=== PATIENT | male | born 1955 | race Two or more races ===

== ENCOUNTER 2024-12-15 07:32 | Day surgery (SDC) | payer MEDICARE, MEDICAID, SELFPAY ==
--- NOTE | 2024-12-12 08:37 | EKG_ITS ---
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
[2024-12-12 11:15] LABS: Basophils # (Auto) 0.0 Thou/mm3 (0.0-0.2); Basophils % (Auto) 1 % (0-2.5); Eosinophils # (Auto) 0.1 Thou/mm3 (0.0-0.5); Eosinophils % (Auto) 1 % (0-10); Hematocrit 38.9 % (41.0-53.0); Hemoglobin 14.1 g/dL (13.5-16.0); Immature Granulocytes Auto 0.01 Thou/mm3 (0.00-0.00); Lymphocytes # (Auto) 1.9 Thou/mm3 (1.0-4.8); Lymphocytes % (Auto) 39 % (10-50); Mean Corpuscular HGB Conc 36.2 g/dl (31.0-37.0); Mean Corpuscular Hemoglobin 29.9 pg (25.0-35.0); Mean Corpuscular Volume 83 fL (80-100); Monocytes # (Auto) 0.9 Thou/mm3 (0.0-0.8); Monocytes % (Auto) 19 % (0-12); Neutrophils # (Auto) 1.9 Thou/mm3 (1.8-7.7); Neutrophils % (Auto) 40 % (37-80); Nucleated Red Blood Cell # 0.00 Thou/mm3 (0.00-0.00); Nucleated Red Blood Cell % 0 /100 WBC (0); Platelet Count 254 Thou/mm3 (140-440); RDW Standard Deviation 37.4 fL (35.1-43.9); Red Blood Count 4.71 Miln/mm3 (4.50-5.90); White Blood Count 4.7 Thou/mm3 (3.8-10.6)
[2024-12-12 11:21] LABS: INR 1.1 (0.9-1.3); Partial Thromboplastin Time 28.6 Seconds (22.0-36.0); Prothrombin Time 11.6 Seconds (9.0-12.2)
[2024-12-12 11:22] LABS: Anion Gap 12 (7-16); BUN/Creatinine Ratio 17 Ratio (12-20); Blood Urea Nitrogen 19 mg/dL (9-23); Calcium 9.4 mg/dL (8.3-10.6); Carbon Dioxide 25.3 mMol/L (20.0-31.0); Chloride 104 mMol/L (98-107); Creatinine (Component) 1.1 mg/dL (0.6-1.3); Glucose 114 mg/dL (74-106); Osmolality,Calculated 284 (275-295); Potassium 3.4 mMol/L (3.4-5.1); Sodium 141 mMol/L (136-145); eGFR > 60 See Note
[2024-12-12 15:15] VITALS: BMI 20.8
[2024-12-15] VITALS (20 sets, daily range): BP systolic 112–156; BP diastolic 59–84; PULSE 46–54; RESP 13–20; TEMP 36.5–36.7; O2SAT 94–98
--- NOTE | 2024-12-15 08:54 | SUR.PREOP ---
Patient expressed gratitude for prayer before their procedure.
--- NOTE | 2024-12-15 12:28 | ESOP_ITS ---
RE: KAMRON ACE : 1955 DATE OF OPERATION: 12/15/2024 CARDIAC CATHETERIZATION AND CORONARY ANGIOGRAPHY REFERRING PHYSICIAN: QUIRINO Naidu, nurse practitioner. PROCEDURE PERFORMED: 1. Left heart catheterization. 2. LV angiography. 3. Selective left and right coronary angiography. 4. Selective right femoral arterial angiography. 5. Conscious sedation monitoring. INDICATIONS FOR PROCEDURE: The patient with history of chronic hypertension, history of diabetes mellitus, symptoms of anginal chest pain, and positive adenosine stress Cardiolite myocardial perfusion imaging study. DETAILS OF THE PROCEDURE: After explaining the procedure in detail to the patient and after obtaining a proper consent, the patient was given 1 mg of intravenous Versed and 50 mcg of intravenous fentanyl as premedication. The right groin area was prepped with antiseptic solution. Local anesthetic of 2% lidocaine was used and the right femoral artery was punctured by Seldinger technique and Hemoccult sheath size 6-Zimbabwean was put in the right femoral artery. Through the sheath, a pigtail catheter size 6-Zimbabwean was advanced and positioned in the ascending aorta. Aortic pressures were recorded and the catheter was placed across the aortic valve into the left ventricle. Left ventricular pressure was recorded and LV angiography was performed in JONES view using 36 mL of dye at a rate of 12 mL per second over a period of 3 seconds. After the left ventricular angiography, the pullback pressures were recorded from the left ventricle to the aorta. The pigtail catheter was exchanged with preformed left coronary Maggie catheter size 6-Zimbabwean JL4, which was advanced with the help of a J-wire and tip positioned over the left coronary ostium. Left coronary angiography was preformed in several different views. After the left coronary angiography, the catheter was exchanged with a preformed right coronary Maggie catheter size 6-Zimbabwean JR4, which was advanced with the help of a J-wire and tip positioned over the right coronary ostium. Three views of the right coronary artery were taken. After the right coronary angiography, the catheter was pulled out and right femoral arterial angiography was performed in JONES as well as in BRENDA views as the arterial puncture site was close to the bifurcation of the right common femoral artery. Local pressure was applied to attain hemostasis of the right femoral arterial puncture site. The patient tolerated the procedure very well without any complications. RESULTS OF PROCEDURE: The hemodynamic data showed aortic pressure is 109/47 with a mean of 71 mmHg, left ventricular pressure is 121/14 mmHg. Post-angiography, left ventricular pressure is 103/11 mmHg. There is no gradient noted across the aortic valve on pullback pressures. The left ventricular angiography showed normal size left ventricle with normal left ventricular systolic function and left ventricular ejection fraction of 60%. No evidence of mitral regurgitation is noted. The coronary angiography showed left main coronary artery is normal. The left anterior descending coronary artery is wrapping around the left ventricular apex and is free of any luminal narrowing. The diagonal and septal branches are normal. The circumflex coronary artery is normal. The right coronary angiography shows small caliber right coronary artery, though is a dominant vessel and is free of any luminal narrowing. The right femoral arterial angiography is normal and the arterial puncture site is right at the bifurcation of the right common femoral artery. FINAL IMPRESSION: 1. Normal coronary angiography. 2. Normal size left ventricle with normal left ventricular systolic function. 3. Normal right femoral arterial angiography. RECOMMENDATIONS: The patient recommended continuation of medical management for the control of the symptoms and coronary risk factor reduction. DT: 10:06:06 TT: 12:27:00 Ref: [id number] - TID: [id number]
--- NOTE | 2024-12-15 14:19 | PC.NURSE ---
Patient sat up in bed, stated he no longer wants to be flat. Educated on doctors orders for staying flat for 6 hours in recovery. Patient stated he did not care and would sit since he is tires of being flat. Dr. Clifton made aware. Groin dressing is clean, dry and intact, no bleeding or hemaoma. will continue to monitor.
--- NOTE | 2024-12-15 18:08 | PC.NURSE ---
1000: Pt received for recovery. Report from [facility]. Pt awake, alert. Resp even, unlabored. VS stable. Dressing to right groin dry, clean, intact. No swelling, firmness, discoloration. Denies pain. 1100: Pt has been resting with no complaints voiced. Was provided breakfast meal. Consumed 100% of meal with no difficulty swallowing and no n/v. Dressing remains dry, clean, intact. No swelling, discoloration. Pedal, femoral pulses strong, regular. at bedside. 1300: Pt has been resting with no complaints voiced. Pt provided urinal. Voided 150cc clear yellow urine, 1630: Pt fully awake, oriented x3. Pt has met criteria for discharge. Pt assisted to restroom. Ambulation steady. Pt and stated understanding of discharge instructions via telecommunication engineer Teena FERRELL. Pt discharged from [facility] in stable condition.
== END 2024-12-15 16:30 | disposition home or self-care (01) ==
PROVIDERS: PCP Physician Assistant; Referring Provider Internal Medicine Cardiovascular Disease; Visit Provider Internal Medicine Cardiovascular Disease
PROC: (CPT 93458; principal; 2024-12-15 09:00)
DX: I25.119 Atherosclerotic heart disease of native coronary artery with unspecified angina pectoris (principal); I10 Essential (primary) hypertension; E11.9 Type 2 diabetes mellitus without complications; Z01.810 Encounter for preprocedural cardiovascular examination
CPT/HCPCS: 93458; 36415; 80048; 85025; 85610; 85730; 93005; 99152; 99153; A4649; C1769; C1894; J0171; J0461; J1643; J2250; J2310; J2371; J3010; J3490; Q9967; J2305

== ENCOUNTER 2025-02-20 09:14 | Emergency (ER) | payer MEDICARE, MEDICAID, SELFPAY ==
[2025-02-20 09:28] VITALS: BP 138/66; PULSE 61; RESP 18; TEMP 36.6; O2SAT 97; BMI 33.3
--- NOTE | 2025-02-20 09:30 | XR_ITS ---
Examination: PA lateral chest 2 views TECHNIQUE: Upright PA lateral chest 2 views Date and time: February 20, 2025 0934 hours INDICATIONS: Fever chest pain congestion beginning 3 days ago FINDINGS: Normal heart size. The lungs are clear. The osseous structures are intact IMPRESSION: No active disease
[2025-02-20 10:20] LABS: Basophils # (Auto) 0.1 Thou/mm3 (0.0-0.2); Basophils % (Auto) 1 % (0-2.5); Eosinophils # (Auto) 0.1 Thou/mm3 (0.0-0.5); Eosinophils % (Auto) 2 % (0-10); Hematocrit 41.3 % (41.0-53.0); Hemoglobin 14.4 g/dL (13.5-16.0); Immature Granulocytes Auto 0.03 Thou/mm3 (0.00-0.00); Lymphocytes # (Auto) 1.3 Thou/mm3 (1.0-4.8); Lymphocytes % (Auto) 16 % (10-50); Mean Corpuscular HGB Conc 34.9 g/dl (31.0-37.0); Mean Corpuscular Hemoglobin 30.0 pg (25.0-35.0); Mean Corpuscular Volume 86 fL (80-100); Monocytes # (Auto) 0.9 Thou/mm3 (0.0-0.8); Monocytes % (Auto) 11 % (0-12); Neutrophils # (Auto) 5.6 Thou/mm3 (1.8-7.7); Neutrophils % (Auto) 70 % (37-80); Nucleated Red Blood Cell # 0.00 Thou/mm3 (0.00-0.00); Nucleated Red Blood Cell % 0 /100 WBC (0); Platelet Count 214 Thou/mm3 (140-440); RDW Standard Deviation 38.5 fL (35.1-43.9); Red Blood Count 4.80 Miln/mm3 (4.50-5.90); White Blood Count 7.9 Thou/mm3 (3.8-10.6)
--- NOTE | 2025-02-20 10:25 | PD.EDURI ---
Upper Respiratory Inf. RME/HPI General Chief Complaint: Flu Like Symptoms Stated Complaint: HEADACHE, BODYACHES, COUGH Time Seen by Provider: 02/20/25 09:25 Source: patient Arrival date/time: 02/20/25 09:14 69-year-old male with no known medical history presents to the emergency room with a chief complaint of a headache, body aches, cough x 1 week Mode of arrival: ambulatory Limitations: no limitations Related Data Home Medications ?Medication ?Instructions ?Recorded ?Confirmed losartan 100 mg tablet 100 mg PO QDAY 01/31/18 12/15/24 atenolol 50 mg tablet 50 mg PO BID 12/27/18 12/15/24 tamsulosin 0.4 mg capsule 0.4 mg PO QDAY 12/27/18 12/15/24 finasteride 5 mg tablet 5 mg PO QDAY 06/29/20 12/15/24 acetaminophen 650 mg 650 mg PO Q12H PRN pain (scale 12/15/24 12/15/24 tablet,extended release (8 Hour score 1-3) Pain Reliever) diclofenac sodium 75 mg 75 mg PO BID 12/15/24 12/15/24 tablet,delayed release folic acid 1 mg tablet 1 mg PO QDAY 12/15/24 12/15/24 hydrochlorothiazide 25 mg tablet 25 mg PO QAM 12/15/24 12/15/24 loratadine 10 mg tablet 10 mg PO Q24H 12/15/24 12/15/24 nitroglycerin 0.4 mg sublingual 0.4 mg buccal chest pain 12/15/24 tablet omeprazole 40 mg capsule,delayed 40 mg PO TID 12/15/24 12/15/24 release Previous Rx's ?Medication ?Instructions ?Recorded acetaminophen 325 mg capsule 650 mg (2 x 325 mg) PO QID PRN 02/20/25 fever or pain 7 days #30 caps Allergies Allergy/AdvReac Type Severity Reaction Status Date / Time chlorpheniramine Allergy Severe Rash Verified 02/20/25 09:17 amoxicillin Allergy Intermediate Rash Verified 02/20/25 09:17 Review of Systems Review of Systems Systems Reviewed: All systems reviewed, normal except as documented Constitutional Constitutional: Reports system reviewed and no additional complaints, except as documented, Denies fatigue, Denies fever(s), Denies headache(s) and Denies weakness Eyes Eyes: Reports system reviewed and no additional complaints, except as documented, Denies blurry vision and Denies change in vision ENT Ears, Nose, Mouth, and Throat: Reports system reviewed and no additional complaints, except as documented, Denies otalgia, Denies headache(s), Denies nasal congestion, Denies throat swelling and Denies vertigo Cardiovascular Cardiovascular: Reports system reviewed and no additional complaints, except as documented, Denies chest pain, Reports dyspnea and Denies dyspnea on exertion Respiratory Respiratory: Reports system reviewed and no additional complaints, except as documented, Reports chest congestion, Reports cough, Reports dyspnea, Denies dyspnea on exertion and Denies wheezing Gastrointestinal Gastrointestinal: Reports system reviewed and no additional complaints, except as documented, Denies abdominal pain, Denies cramping, Denies nausea and Denies vomiting Genitourinary Genitourinary: Reports system reviewed and no additional complaints, except as documented, Denies dysuria and Denies hematuria Musculoskeletal Musculoskeletal: Reports system reviewed and no additional complaints, except as documented and Denies back pain Integumentary/Breasts Skin/Breast: Reports system reviewed and no additional complaints, except as documented and Denies wounds Neurologic Neurologic: Reports system reviewed and no additional complaints, except as documented, Denies confusion, Denies headache(s), Denies lack of coordination, Denies vertigo and Denies weakness Psychiatric Psychiatric: Reports system reviewed and no additional complaints, except as documented, Denies anxiety, Denies confusion, Denies depression, Denies paranoia, Denies suicidal ideation and Denies tactile hallucinations Endocrine Endocrine: Reports system reviewed and no additional complaints, except as documented and Denies fatigue Hematologic/Lymphatic Hematologic/Lymphatic: Reports system reviewed and no additional complaints, except as documented and Denies lymphadenopathy Allergic/Immunologic Allergic/Immunologic: Reports system reviewed and no additional complaints, except as documented, Denies throat swelling, Denies urticaria and Denies wheezing Past Medical History Past Medical History NEUROLOGIC: Positive Neurological Disorders and Migraine; Negative Cerebrovascular Accident, Transient Ischemic Attacks (TIA) or Seizures CARDIAC: Positive Cardiac Disorders, Hypercholesterolemia and Hypertension; Negative Cardiac Arrhythmia or Congestive Heart Failure RESPIRATORY: Positive Bronchitis (in past); Negative Chronic Obstructive Pulmonary Disease (COPD), Asthma, Emphysema, Pneumonia or Tuberculosis GASTROINTESTINAL: Positive Gastrointestinal Disorders, Pancreatitis and Ulcer GENITOURINARY: Positive Benign Prostatic Hyperplasia; Negative Genitourinary Disorders or Renal Disease REPRODUCTIVE: Negative Breast Cancer MUSCULOSKELETAL: Positive Musculoskeletal Disorders and Arthritis ENT: Positive Cataracts ENDOCRINE: Positive Endocrine Disorders and Diabetes Mellitus Type 2; Negative Diabetes Mellitus Type 1 HEMATOLOGIC: Negative Blood Disorders or Sickle Cell Disease PSYCHO/SOCIAL: Positive Depression and Anxiety OTHER HISTORY: Negative Autoimmune Disease, Blood Transfusions, Blood Transfusion Reaction, Anesthesia Reactions, MRSA, Clostridium Difficile, Cancer or Breast Cancer Family History FAMILY HISTORY: Negative Family Gastrointestinal Problems Surgical History SURGICAL: Positive Abdominal Surgery; Negative Cardiac Surgery, Pacemaker, Endocrine Surgery, Ear Surgery, Nephrectomy, Joint Replacement or Neurologic Surgery Social History SMOKING STATUS: Never smoker SUBSTANCE USE: does not use ED Exam General Limitations: Present no limitations General appearance: Present alert and in no apparent distress Head Head exam: Present atraumatic Eye Eye exam: Present normal appearance, PERRL and EOMI ENT ENT exam: Present normal exam, normal oropharynx and mucous membranes moist Neck Neck exam: Present normal inspection, full ROM and trachea midline Chest Chest inspection: Present normal inspection and symmetric chest wall rise Respiratory Respiratory exam: Present normal lung sounds bilaterally; Absent respiratory distress, wheezes, stridor, accessory muscle use or prolonged expiratory phase Cardiovascular Cardiovascular exam: Present regular rate, normal rhythm and normal heart sounds; Absent bradycardia, tachycardia or irregular rhythm Abdominal Exam Abdominal exam: Present soft and normal bowel sounds Extremities Exam Extremities exam: Present normal inspection and full ROM Back Exam Back exam: Present normal inspection and full ROM Neurological Exam Neurological exam: Present alert, oriented X3 and CN II-XII intact Psychiatric Psychiatric exam: Present normal affect and normal mood Skin Skin exam: Present warm, dry, intact and normal color Course Quality Measures none Orders Category Date Time Status Bedside COVID-19 Antigen Test NOW Care 02/20/25 09:30 Active Bedside Influenza A&B Antigen Test NOW Care 02/20/25 09:30 Completed XR chest 2V Stat Exams 02/20/25 09:30 Completed CBC Stat Lab 02/20/25 09:55 Completed CMP [Comprehensive Metabolic Panel] Stat Lab 02/20/25 09:55 Completed Vital Signs Vital signs: Vital Signs Temperature 98 F 02/20/25 09:28 Pulse Rate 61 02/20/25 09:28 Respiratory Rate 18 02/20/25 09:28 Blood Pressure 138/66 H 02/20/25 09:28 Pulse Oximetry (%) 97 02/20/25 09:28 Oxygen Delivery Method Room Air 02/20/25 09:28 O2 saturation 97% within normal limits Upper Respiratory Infection MDM Narrative MDM Narrative:: 69-year-old male with no known medical history presents to the emergency room with a chief complaint of a headache, body aches, cough x 1 week Patient is hemodynamically stable and in no apparent distress The patient is not tachycardic not tachypneic and O2 saturation of 97% on room air Physical examination shows clear bilateral lung sounds there is no wheezing or any abnormal breath sounds The patient is ambulating and O2 saturation is staying above 95%. Chest x-ray was negative for any pneumonia Patient tested positive for COVID-19 Patient was discharged and educated to follow-up with primary care provider in the next 24 to 48 hours and return to the emergency room for any evidence of worsening signs or symptoms Patient data External records reviewed:: [facility] previous records Clinical information provided by:: patient Social determinants that could affect healthcare access:: none Patient has the following chronic illnesses:: No chronic illness How is presenting disease/condition affected by chronic disease/condition?: no chronic disease Evaluation data The following diagnostics were reviewed and interpreted by me:: lab results and radiology exam(s) Lab and/or radiology exams considered but not ordered:: Labs and radiology exams considered and ordered Interpretation Summary: Chest [id number]: Normal heart size. The lungs are clear. The osseous structures are intact IMPRESSION: No active disease Medications / Prescriptions Medications or Prescriptions considered but not ordered:: No medication given Medication administrations:: No medication given Consultations Consultation(s) initiated? (list below): No Diagnosis Upper Respiratory Differential Diagnosis: upper respiratory infection, viral infection, bronchitis, influenza, pharyngitis and other (COVID-19/commune acquired pneumonia) Most likely diagnosis given after review of the tests above:: COVID-19 Admission Indicated Admission indicated?: not indicated Admission Request Was there a request for admission?: No Disposition Plan Disposition Plan: Discharge Discharge Attestation Discharge Attestation: The patient and all family members were given an opportunity to ask questions and understood the discharge instructions. Discharge instructions specifically effects, indications for sooner follow up or return to the emergency department, and the expected course of current diagnosis. Patient condition: Stable Discharge Plan Plan Patient Disposition: HOME (Self Care) Discharge Disposition comment: Stable Prescriptions/Referrals Prescriptions/Med Rec: New acetaminophen 325 mg capsule 650 mg PO QID PRN (Reason: fever or pain) 7 Days Qty: 30 0RF No Action finasteride 5 mg tablet 5 mg PO QDAY atenolol 50 mg tablet 50 mg PO BID tamsulosin 0.4 mg capsule 0.4 mg PO QDAY losartan 100 mg Tablet 100 mg PO QDAY nitroglycerin 0.4 mg tablet, sublingual 0.4 mg buccal omeprazole 40 mg capsule,delayed release(DR/EC) 40 mg PO TID hydrochlorothiazide 25 mg tablet 25 mg PO QAM folic acid 1 mg tablet 1 mg PO QDAY acetaminophen [8 Hour Pain Reliever] 650 mg tablet extended release 650 mg PO Q12H PRN (Reason: pain (scale score 1-3)) diclofenac sodium 75 mg tablet,delayed release (DR/EC) 75 mg PO BID loratadine 10 mg tablet 10 mg PO Q24H Referrals: Viky Gold PA-C [Primary Care Provider, Family Practice] - In 1 week Problem List Clinical Impression: COVID-19 Patient/Caregiver Discharge Instructions Education Materials: 2018-nCoV Additional Instructions: Por favor, consulte con sanderson m?dico de cabecera en las pr?ximas 24 a 48 horas. Jason positivo en la prueba de COVID-19. El tratamiento es el control de los s?ntomas. Contin?e tomando Tylenol e ibuprofeno para controlar la fiebre. Aumente sanderson consumo de l?quidos por v?a oral. Ante cualquier signo de empeoramiento de los signos o s?ntomas, acuda inmediatamente a urgencias. Print Language: English Stand Alone Forms: Rosana Award Info., Work/School Release, Patient Portal Info Letter PA/EMILY Supervising Physician PA/EMILY Supervising Physician: Dr. Peterson
[2025-02-20 10:48] LABS: Alanine Aminotransferase 25 U/L (10-49); Albumin, Serum 4.6 gm/dL (3.4-4.8); Albumin/Globulin Ratio 2.2 (1.2-2.2); Alkaline Phosphatase 93 U/L (46-116); Anion Gap 9 (7-16); Aspartate Amino Transferase 25 U/L (0-34); BUN/Creatinine Ratio 14 Ratio (12-20); Bilirubin,Total 0.7 mg/dL (0.3-1.2); Blood Urea Nitrogen 15 mg/dL (9-23); Calcium 10.6 mg/dL (8.3-10.6); Calcium (Corrected) 10.6 mg/dL (8.5-10.1); Carbon Dioxide 28.2 mMol/L (20.0-31.0); Chloride 104 mMol/L (98-107); Creatinine (Component) 1.1 mg/dL (0.6-1.3); Estimated Creatinine Clearance 59.5 mL/min (>60); Globulin 2.1 gm/dL (2.3-3.5); Glucose 135 mg/dL (74-106); Osmolality,Calculated 284 (275-295); Potassium 3.8 mMol/L (3.4-5.1); Sodium 141 mMol/L (136-145); Total Protein 6.7 gm/dL (5.7-8.2); eGFR > 60 See Note
== END 2025-02-20 18:34 | disposition home or self-care (01) ==
PROVIDERS: Emergency Provider Nurse Practitioner Family; PCP Physician Assistant
DX: U07.1 COVID-19 (principal)
CPT/HCPCS: 36415; 71046; 80053; 85025; 87400; 87811; 99283